=== PATIENT | male | born 1960 | race Two or more races ===

== ENCOUNTER 2016-10-20 05:14 | Emergency (ER) | payer OTHER ==
[~2016-10-20] VITALS: Ht 175.3 cm; Wt 86.0 kg
[~2016-10-20 05:14] MED LIST: AMLO-145 PO; ASPI-535 PO; CEPH-443 PO; DOXY100C47 PO; HYD25 PO; ISOS20TA3 PO; LISI40TA PO; METF1000 PO; METO100T13 PO; NAPR-260 PO
[2016-10-20 05:22] VITALS: Ht 175.3 cm; Wt 86.0 kg
[2016-10-20] MEDS ORDERED: SOD CHLORIDE 0.9% 1,000 ML IV STA (06:23)
--- NOTE | 2016-10-20 07:11 | ERD ---
ER Documentation Chief Complaint Date/Time DATE: 10/20/16 TIME: 07:08 Chief Complaint right lower abdominal pain, started 2 hours ago with N/V [employer] HPI 56-year-old male with a history of CAD status post CABG 10 years ago, hypertension, diabetes presenting with left lower quadrant pain that started about 3 hours ago. He has had pain in the last few days intermittently in this area, however tonight it was much stronger. He is unable to describe the pain he just states it is "too much". At this time is a 2-3 out of 10. Pain is nonradiating, intermittent, with associated nausea but no vomiting. He denies any associated fever, chills, chest pain, shortness of breath, diarrhea, constipation, hematochezia, dysuria, or hematuria. He has had this pain before , about 20 years ago. ROS All systems reviewed and are negative except as per history of present illness. Medications Home Meds Reported Medications Cephalexin* (Keflex*) 500 Mg Capsule, 500 MG PO Q6 05/07/13 Doxycycline Hyclate (Doxycycline Hyclate) 100 Mg Capsule.dr, 100 MG PO BID 05/07/13 Aspirin Ec (Aspir 81) 81 Mg Tablet.dr, 81 MG PO DAILY 05/07/13 Amlodipine Besylate* (Amlodipine Besylate*) 5 Mg Tablet, 10 MG PO DAILY 05/07/13 Hydrochlorothiazide* (Hydrochlorothiazide*) 25 Mg Tab, 25 MG PO DAILY, TAB 05/07/13 Lisinopril* (Prinivil*) 40 Mg Tablet, 40 MG PO DAILY 05/07/13 Metformin Hcl* (Metformin Hcl*) 1,000 Mg Tablet, 1000 MG PO DAILY 05/07/13 Isosorbide Mononitrate (Isosorbide Mononitrate) 20 Mg Tablet, 20 MG PO DAILY 05/07/13 Naproxen* (Naprosyn*) 500 Mg Tablet, 500 MG PO BID 05/07/13 Metoprolol Succinate* (Toprol XL*) 100 Mg Tab.sr.24h, 100 MG PO DAILY 05/07/13 Allergies Allergies: Coded Allergies: No Known Allergy (Unverified , 02/25/12) PMhx/Soc History of Surgery: Yes (CABG in 2005) Anesthesia Reaction: No Hx Neurological Disorder: No Hx Respiratory Disorders: No Hx Cardiac Disorders: Yes (MA, CAD, hypertension) Hx Psychiatric Problems: No Hx Miscellaneous Medical Probl: Yes (Diabetes) Hx Alcohol Use: No Hx Substance Use: No Hx Tobacco Use: No Smoking Status: Never smoker FmHx Family History: diabetes Physical Exam Vitals Vital Signs Date Time Temp Pulse Resp B/P Pulse Ox O2 Delivery O2 Flow Rate FiO2 10/20/16 06:52 57 17 171/85 100 Room Air 10/20/16 06:17 60 18 140/81 100 Room Air 10/20/16 05:22 97.5 61 22 186/82 100 Physical Exam Const: Well-appearing, nontoxic, no apparent distress Head: Atraumatic Eyes: Normal Conjunctiva ENT: Normal External Ears, Nose and Mouth. Neck: Full range of motion..~ No meningismus. Resp: Clear to auscultation bilaterally Cardio: Sternal surgical scar noted. Regular rate and rhythm, no murmurs. 2 + distal pulses Abd: Soft, mild left lower quadrant tenderness without rebound or guarding, non distended. Normal bowel sounds Skin: No petechiae or rashes Back: No midline or flank tenderness Ext: No cyanosis, or edema Neur: Awake and alert Psych: Normal Mood and Affect Result Diagram: 10/20/16 0649 10/20/16 0649 Results 24 hrs Laboratory Tests Test 10/20/16 06:49 White Blood Count 7.910^3/ul Red Blood Count 6.2110^6/ul Hemoglobin 11.7g/dl Hematocrit 37.6% Mean Corpuscular Volume 60.5fl Mean Corpuscular Hemoglobin 18.8pg Mean Corpuscular Hemoglobin Concent 31.1g/dl Red Cell Distribution Width 18.2% Platelet Count 01359^3/UL Mean Platelet Volume 11.0fl Neutrophils % 67.6% Lymphocytes % 19.6% Monocytes % 7.2% Eosinophils % 4.8% Basophils % 0.5% Nucleated Red Blood Cells % 0.0/100WBC Neutrophils # (Manual) 510^3/ul Lymphocytes # 1.610^3/ul Monocytes # 0.610^3/ul Eosinophils # 0.410^3/ul Basophils # 0.010^3/ul Nucleated Red Blood Cells # 0.010^3/ul Urine Color STRAW Urine Clarity CLEAR Urine pH 5.0 Urine Specific [place] 1.005 Urine Ketones NEGATIVEmg/dL Urine Nitrite NEGATIVEmg/dL Urine Bilirubin NEGATIVEmg/dL Urine Urobilinogen NEGATIVEmg/dL Urine Leukocyte Esterase NEGATIVELeu/ul Urine Microscopic RBC 10/HPF Urine Microscopic WBC 1/HPF Urine Bacteria FEW/HPF Urine Hemoglobin 3+mg/dL Urine Glucose NEGATIVEmg/dL Urine Total Protein NEGATIVEmg/dl Sodium Level 137mmol/L Potassium Level 4.6mmol/L Chloride Level 106mmol/L Carbon Dioxide Level 22mmol/L Anion Gap 14 Blood Urea Nitrogen 17mg/dl Creatinine 1.14mg/dl Glucose Level 194mg/dl Calcium Level 9.1mg/dl Total Bilirubin 0.7mg/dl Direct Bilirubin 0.00mg/dl Indirect Bilirubin 0.7mg/dl Aspartate Amino Transf (AST/SGOT) 17IU/L Alanine Aminotransferase (ALT/SGPT) 29IU/L Alkaline Phosphatase 79IU/L Total Protein 7.5g/dl Albumin 4.2g/dl Globulin 3.30g/dl Albumin/Globulin Ratio 1.27 Current Medications Medications (Trade) Dose Ordered Sig/Morgan Route PRN Reason Start Time Stop Time Status Last Admin Dose Admin Sodium Chloride (NS) 1,000 ml @ 1,000 mls/hr Q1H STAT IV 10/20/16 06:23 10/20/16 07:22 DC 10/20/16 06:30 Procedures/MDM EMERGENT LABS AND DIAGNOSTIC STUDIES: Lab Results above were reviewed and interpreted by me. CBC: Mild anemia, no leukocytosis CMP: No evidence of electrolyte abnormality, renal failure, hypoglycemia, liver failure, or biliary obstruction UA: Microscopic hematuria, no evidence of infection 12-lead EKG was interpreted by Gibran Jesus MD: Sinus bradycardia at 59 beats per minute Normal axis Normal intervals Lateral T-wave abnormality, nonspecific No acute STEMI. Radiology Results as interpreted by Radiology below were reviewed by Yovanny Jesus MD: CT abdomen and pelvis IMPRESSION: Bladder calculus measuring 3 mm likely represents a recently passed renal stone. There is no obstructive uropathy at this time. Colonic diverticulosis without evidence of diverticulitis. Moderate retained stool within the colon. Bilateral small inguinal hernias containing fat. Mild bibasilar atelectasis. Mild cardiomegaly. Cholelithiasis. Vascular calcifications reflective of atherosclerosis. .Gumaro Yoder MD, Date Time Electronically viewed and signed by .Gumaro Yoder MD, MD on 10/20/2016 07:41 Initial Nursing notes reviewed. Previous Medical Records requested via the Electronic Health Record. EMERGENCY DEPARTMENT COURSE / MEDICAL DECISION MAKING: Patient's pain is most consistent with renal colic. Vitals were stable. I have a low suspicion for aortic dissection, AAA, ACS, perforated viscus, or other causes of acute surgical abdomen. Labs showed microscopic hematuria and CT showed evidence of a recently passed kidney stone with a 3 mm stone sitting in his bladder. Patient's pain is improved. He does not require any medications while in the ED. He was only given IV fluids. He has been urinating without any difficulties here and no paola hematuria. I believe the patient is stable for discharge with continued outpatient follow-up. I explained to him that he will urinate the kidney stone out. If he has any difficulty urinating or any complications, he is to return to the ER immediately. Patient understands discharge plan. Patient's blood pressure was elevated (>120/80) but appears stable without evidence of hypertensive emergency or urgency. The patient was counseled about the risks of hypertension and urged to pursue outpatient monitoring and therapy within a week with their primary care physician. Departure Diagnosis: Primary Impression: Pain due to calculus of kidney Condition: Stable MILO JESUS MD Oct 20, 2016 07:11
[2016-10-20 07:15] LABS: ABNORMAL IP MESSAGE 1; BASOPHILS % 0.5 % (0.0-2.0); EOSINOPHILS # 0.4 10^3/ul (0.0-0.5); EOSINOPHILS % 4.8 % (0.0-7.0); HEMATOCRIT 37.6 % (42.0-52.0); HEMOGLOBIN 11.7 g/dl (14.0-18.0); LYMPHOCYTES # 1.6 10^3/ul (0.8-2.9); LYMPHOCYTES % 19.6 % (15.0-51.0); MEAN CORPUSCULAR HEMOGLOBIN 18.8 pg (29.0-33.0); MEAN CORPUSCULAR HGB CONC 31.1 g/dl (32.0-37.0); MEAN CORPUSCULAR VOLUME 60.5 fl (82.0-101.0); MONOCYTE # 0.6 10^3/ul (0.3-0.9); MONOCYTES % 7.2 % (0.0-11.0); NEUTROPHILS % 67.6 % (39.0-77.0); PLATELET COUNT 214 10^3/UL (140-415); POSITIVE DIFF @See below; RED BLOOD COUNT 6.21 10^6/ul (4.70-6.10); RED CELL DISTRIBUTION WIDTH 18.2 % (11.5-14.5); WHITE BLOOD COUNT 7.9 10^3/ul (4.8-10.8)
[2016-10-20 07:16] LABS: ADD UMIC YES; UR ASCORBIC ACID NEGATIVE (NEGATIVE); UR BACTERIA FEW /HPF (NONE SEEN); UR BILIRUBIN (Dip) NEGATIVE (NEGATIVE); UR BLOOD (Dip) 3+ mg/dL (NEGATIVE); UR CLARITY CLEAR (CLEAR); UR COLOR STRAW (YELLOW); UR GLUCOSE (Dip) NEGATIVE (NEGATIVE); UR KETONES (Dip) NEGATIVE (NEGATIVE); UR LEUKOCYTE ESTERASE (Dip) NEGATIVE Leu/ul (NEGATIVE); UR NITRITE (Dip) NEGATIVE (NEGATIVE); UR RBC 10 /HPF (0-5); UR SPECIFIC GRAVITY (Dip) 1.005 (1.003-1.030); UR TOTAL PROTEIN (Dip) NEGATIVE (NEGATIVE); UR UROBILINOGEN (Dip) NEGATIVE (NEGATIVE)
[2016-10-20 07:34] LABS: ALBUMIN 4.2 g/dl (3.3-4.9); ALBUMIN/GLOBULIN RATIO 1.27; BILIRUBIN,INDIRECT 0.7 mg/dl (0-1.1); BILIRUBIN,TOTAL 0.7 mg/dl (0.2-1.3); CALCIUM 9.1 mg/dl (8.4-10.2); CREATININE 1.14 mg/dl (0.61-1.24); POTASSIUM 4.6 mmol/L (3.5-5.1); TOTAL PROTEIN 7.5 g/dl (6.1-8.1)
--- NOTE | 2016-10-20 07:42 | RADRPT ---
PROCEDURE: CT Abdomen and pelvis without contrast. CLINICAL INDICATION: Abdominal pain. TECHNIQUE: CT scan of the abdomen and pelvis was performed on a multi-detector high-resolution CT scanner. Contiguous axial images were obtained from the lung bases to the ischial tuberosities wit hout intravenous contrast. Coronal and sagittal reformatted images were also obtained. Images were reviewed on the PACS workstation. One or more of the following dose reduction techniques were used: - Automated exposure control. - Adjustment of the mA and/or kV according to patient size. - Use of iterative reconstruction technique. Exam CTD/vol = 16.95 mGy. Total exam DLP = 1155.74 mGy-cm. COMPARISON: None. FINDINGS: Evaluation of the lung bases demonstrates mild bibasilar atelectasis. The heart is mildly enlarged. Abdomen: The liver is normal in size. There is no focal mass or dilatation of the biliary tree. T he gallbladder is not distended. Multiple gallstones are identified. The spleen, pancreas and bila teral adrenal glands are within normal limits. Bilateral kidneys are normal in size with no contour deforming mass identified. There is no radiopaque renal or ureteral calculus identified. There is no hydronephrosis or hydroureter. There is no retroperitoneal adenopathy. The abdominal aorta is of normal caliber with scattered atherosclerotic calcifications. There is moderate stool within the colon. There is no bowel obstruction or free air. A normal appe ndix is identified. There is colonic diverticulosis without evidence of diverticulitis. There is n o ascites. Pelvis: The bladder is unremarkable. The bladder contains a 3 mm calculus. There are bilateral smal l inguinal hernias containing fat. The prostate and seminal vesicles are within normal limits. The re is no significant pelvic adenopathy or free fluid. Evaluation of the osseous structures demonstrates no suspicious lytic or blastic lesion. IMPRESSION: Bladder calculus measuring 3 mm likely represents a recently passed renal stone. There is no obstruc tive uropathy at this time. Colonic diverticulosis without evidence of diverticulitis. Moderate retained stool within the colon. Bilateral small inguinal hernias containing fat. Mild bibasilar atelectasis. Mild cardiomegaly. Cholelithiasis. Vascular calcifications reflective of atherosclerosis. .Gumaro Yoder MD, MD Date Time Electronically viewed and signed by .Gumaro Yoder MD, MD on 10/20/2016 07:41 .T/
[2016-10-20 08:01] VITALS: BP 141/88; PULSE 57; RESP 19
== END 2016-10-20 08:14 | disposition home or self-care (01) ==
LOC: E/R 05:14
DX: N20.0 Calculus of kidney (principal); I10 Essential (primary) hypertension; E11.9 Type 2 diabetes mellitus without complications; I25.10 Atherosclerotic heart disease of native coronary artery without angina pectoris; Z79.82 Long term (current) use of aspirin; Z79.84 Long term (current) use of oral hypoglycemic drugs; Z95.1 Presence of aortocoronary bypass graft
CPT/HCPCS: 36415; 74176; 80053; 81001; 85025; 93005; J7030; Z7502

== ENCOUNTER 2017-06-20 18:56 | Emergency (ER) | END 2017-06-20 21:50 | disposition home or self-care (01) ==

== ENCOUNTER 2017-06-21 11:26 | Emergency (ER) | END 2017-06-21 13:08 | disposition home or self-care (01) ==

== ENCOUNTER 2017-06-23 11:51 | Emergency (ER) | END 2017-06-23 15:55 | disposition home or self-care (01) ==

== ENCOUNTER 2017-06-27 10:55 | Emergency (ER) | END 2017-06-27 12:15 | disposition home or self-care (01) ==

== ENCOUNTER 2017-07-30 15:23 | Observation (INO) | END 2017-07-31 15:30 | disposition home or self-care (01) ==